=== PATIENT | male | born 1955 ===

== ENCOUNTER 2017-06-11 11:48 | Inpatient (IN) | payer BC, MEDICARE, OTHER ==
--- NOTE | 2017-06-11 12:25 | ED PDOC ---
HPI: Chest Pain Time Seen by Provider: 06/11/17 12:03 Chief Complaint (Nursing): Chest Pain Chief Complaint (Provider): Chest tightness History Per: Patient History/Exam Limitations: no limitations Onset/Duration Of Symptoms: Days (x2) Current Symptoms Are (Timing): Still Present Additional Complaint(s): Rylan Warner is a 61 year old male with a past medical history of CAD s/p cabg presenting to the ED for an evaluation of left sided chest tightness radiating to his left arm occurring for 2 days prior to arrival. The patient denies shortness of breath, cough, or fever. PMD: Demetrius Goyal MD Past Medical History Reviewed: Historical Data, Nursing Documentation, Vital Signs Vital Signs: Last Vital Signs Temp 98 F 06/11/17 12:49 Pulse 70 06/11/17 12:49 Resp 18 06/11/17 12:49 BP 130/72 06/11/17 12:49 Pulse Ox 100 06/11/17 12:49 - Medical History PMH: CAD - Surgical History Surgical History: CABG - Family History Family History: States: No Known Family Hx - Social History Current smoker - smoking cessation education provided: No Ex-Smoker (has not smoked in the last 12 months): No Alcohol: None Drugs: Denies - Home Medications Home Medications: Ambulatory Orders Medication Instructions Recorded Aspirin [Ecotrin] 81 mg PO DAILY 06/11/17 Clopidogrel [Plavix] 75 mg PO DAILY 06/11/17 Ergocalciferol (Vitamin D2) 50,000 unit PO SUN 06/11/17 [Vitamin D2] Metoprolol Tartrate [Lopressor] 25 mg PO Q12H 06/11/17 Multivitamin [Daily Zoraida] 1 tab PO DAILY 06/11/17 [id number] Ethyl Esters 1 GM 2 gm PO BID 06/11/17 [Lovaza] - Allergies Allergies/Adverse Reactions: Allergies Allergy/AdvReac Type Severity Reaction Status Date / Time No Known Allergies Allergy Verified 06/11/17 11:55 Review of Systems ROS Statement: Except As Marked, All Systems Reviewed And Found Negative Constitutional: Negative for: Fever Respiratory: Positive for: Other (left sided chest tightness radiating to left arm). Negative for: Cough, Shortness of Breath Musculoskeletal: Positive for: Arm Pain (left) Physical Exam - Reviewed Nursing Documentation Reviewed: Yes Vital Signs Reviewed: Yes - Physical Exam Appears: Positive for: Non-toxic, No Acute Distress Head Exam: Positive for: ATRAUMATIC, NORMOCEPHALIC Skin: Positive for: Normal Color, Warm, Dry Eye Exam: Positive for: Normal appearance, EOMI ENT: Positive for: Normal ENT Inspection Neck: Positive for: Normal, Painless ROM Cardiovascular/Chest: Positive for: Regular Rate, Rhythm, Chest Non Tender (no anterior chest wall tenderness) Respiratory: Positive for: Normal Breath Sounds. Negative for: Respiratory Distress Gastrointestinal/Abdominal: Positive for: Normal Exam, Soft. Negative for: Tenderness Back: Positive for: Normal Inspection Extremity: Positive for: Normal ROM (full ROM). Negative for: Deformity Neurologic/Psych: Positive for: Alert, Oriented (x3). Negative for: Motor/ Sensory Deficits - Laboratory Results Result Diagrams: 06/11/17 12:40 12 12:40 Medical Decision Making Medical Decision Making: Time: 12:03 Impression: Chest tightness Plan: * ED EKG * CMP * Troponin I * CBC (with differential) * Aspirin 325 mg PO * [RAD] Chest Two Views (PA/LAT) * Reevaluation Scribe Attestation: Documented by Marlys Walsh, acting as a scribe for Alec Randall MD. Provider Scribe Attestation: All medical record entries made by the Scribe were at my direction and personally dictated by me. I have reviewed the chart and agree that the record accurately reflects my personal performance of the history, physical exam, medical decision making, and the department course for this patient. I have also personally directed, reviewed, and agree with the discharge instructions and disposition. Disposition - Clinical Impression Clinical Impression: Chest pain - Patient ED Disposition Is Patient to be Admitted: Yes - Disposition Disposition Time: 14:31 Condition: FAIR Forms: [employer] (Bulgarian) - Pt Status Changed To: Hospital Disposition Of: Observation - POA Present On Arrival: None
[2017-06-11 13:01] LABS: BASO % 0.5 % (0.0-2.0); EOS # 0.1 K/uL (0.0-0.7); EOS % 0.8 % (0.0-4.0); HEMATOCRIT 42.5 % (35.0-51.0); LYMPH # 1.1 K/uL (1.0-4.3); LYMPH % 14.6 % (20.0-40.0); MEAN CELL VOLUME 87.5 fl (80.0-94.0); MEAN CORPUSCULAR HEMOGLOBIN 30.1 pg (27.0-31.0); MEAN CORPUSCULAR HGB CONC 34.4 g/dL (33.0-37.0); MEAN PLATELET VOLUME 9.4 fl (7.2-11.7); MONO # 0.4 K/uL (0.0-0.8); MONO % 5.7 % (0.0-10.0); NEUT # 5.8 K/uL (1.8-7.0); NEUT % 78.4 % (50.0-75.0); NRBC % 0.1 % (0.0-0.0); WHITE BLOOD COUNT 7.4 K/uL (4.8-10.8)
[2017-06-11 13:09] LABS: ALB/GLOB RATIO 1.7 (1.0-2.1); ALKALINE PHOSPHATASE 72 U/L (38-126); ALT/SGPT 57 U/L (21-72); AST/SGOT 26 U/L (17-59); BILIRUBIN,TOTAL 0.7 mg/dl (0.2-1.3); BLOOD UREA NITROGEN 10 mg/dl (9-20); CALCIUM 9.4 mg/dL (8.4-10.2); CARBON DIOXIDE 26 mmol/L (22-30); CHLORIDE 103 mmol/L (98-107); GFR AFRICAN-AMERICAN > 60; GLUCOSE,RANDOM 98 mg/dL (75-110); POTASSIUM 4.1 MMOL/L (3.6-5.0); SODIUM 140 mmol/l (132-148); TOTAL PROTEIN 7.7 G/DL (6.3-8.2)
--- NOTE | 2017-06-11 15:47 | RAD ---
HISTORY: Chest pain. COMPARISON: Comparison chest 11/05/2013 TECHNIQUE: Chest PA and lateral FINDINGS: LUNGS: No acute consolidation. There is a vague nodular appearing density left lower lateral lung field which overlies the left posterior 9th rib and left anterior 6 rib junction of uncertain etiology though could represent confluence of shadow artifact. Followup nonemergent CT scan of the chest recommended for further evaluation to exclude parenchymal nodule. PLEURA: No significant pleural effusion identified. No pneumothorax apparent. CARDIOVASCULAR: Sternotomy wires and CABG clips again noted. Heart size within range of normal. Minor calcification aortic knob. OSSEOUS STRUCTURES: No significant abnormalities. VISUALIZED UPPER ABDOMEN: Normal. OTHER FINDINGS: None. IMPRESSION: No acute consolidation. Vague nodular density left lateral lower lung field overlying the left posterior 9th rib and left anterior 6 rib junction of uncertain etiology. While this could represent confluence of shadow artifact, the possibility of a small parenchymal nodule not excluded. Followup nonemergent CT scan of the chest recommended for further evaluation. Note that this report was placed in PA review folder for followup.
[2017-06-11] MEDS: Omega-3-Acid Ethyl Esters 1 GM Cap PO SCH (17:42)
[2017-06-11] MEDS: Enoxaparin 40 mg Syringe SC SCH (17:43)
--- NOTE | 2017-06-11 17:49 | CP.PCM.CON ---
History of Present Illness - History of Present Illness History of Present Illness: I was asked to see patient by Dr Carmen. Patient is a 61 year old male with PMH HTN, hypercholesterolemia CAD s/p CABG who presents with chest pain. The patient describes substernal chest pain which is worse with inspiration. He has pressure on the left and has associated dyspnea. He previously had a stress test which was thought to be due to diaphragmatic attenuation. He has done well until his most recent onset of symptoms. Review of Systems - Constitutional Constitutional: absent: As Per HPI, Anorexia, Chills, Daytime Sleepiness, Excessive Sweating, Fatigue, Fever, Frequent Falls, Headache, Increased Appetite , Lethargy, Malaise, Night Sweats, Snoring, Sleep Apnea, Weight Gain, Weight Loss, Weakness, Other - EENT Eyes: absent: As Per HPI, Blind Spots, Blurred Vision, Change in Vision, Decreased Night Vision, Diplopia, Discharge, Dry Eye, Exophthalmos, Floaters, Irritation, Itchy Eyes, Loss of Peripheral Vision, Pain, Photophobia, Requires Corrective Lenses, Sees Flashes, Spots in Vision, Tunnel Vision, Other Visual Disturbances, Loss of Vision, Other Ears: absent: As Per HPI, Decreased Hearing, Ear Discharge, Ear Pain, Tinnitus, Abnormal Hearing, Disequilibrium, Dizziness, Other Nose/Mouth/Throat: absent: As Per HPI, Epistaxis, Nasal Congestion, Nasal Discharge, Nasal Obstruction, Nasal Trauma, Nose Pain, Post Nasal Drip, Sinus Pain, Sinus Pressure, Bleeding Gums, Change in Voice, Dental Pain, Dry Mouth, Dysphagia, Halitosis, Hoarsness, Lip Swelling, Mouth Lesions, Mouth Pain, Odynophagia, Sore Throat, Throat Swelling, Tongue Swelling, Facial Pain, Neck Pain, Neck Mass, Other - Cardiovascular Cardiovascular: Chest Pain - Respiratory Respiratory: absent: As Per HPI, Cough, Dyspnea, Hemoptysis, Dyspnea on Exertion , Wheezing, Snoring, Stridor, Pain on Inspiration, Chest Congestion, Excessive Mucous Production, Change in Mucous Color, Pain with Coughing, Other - Gastrointestinal Gastrointestinal: absent: As Per HPI, Abdominal Pain, Belching, Bloating, Change in Bowel Habits, Change in Stool Character, Coffee Ground Emesis, Constipation, Cramping, Diarrhea, Dyspepsia, Dysphagia, Early Satiety, Excessive Flatus, Fecal Incontinence, Heartburn, Hematemesis, Hematochezia, Loose Stools, Melena, Nausea, Odynophagia, Temesmus, Vomiting, Other - Genitourinary Genitourinary: absent: As Per HPI, Change in Urinary Stream, Difficulty Urinating, Dysuria, Flank Pain, Hematuria, Pyuria, Nocturia, Urinary Incontinence, Urinary Frequency, Urinary Hesitance, Urinary Urgency, Voiding Freq/Small Amts, Freq UTI, Hx Renal/Bladder Calculi, Hx /Renal Surgery, Bladder Distension, Other - Musculoskeletal Musculoskeletal: absent: As Per HPI, Abnormal Gait, Arthralgias, Atrophy, Back Pain, Deformity, Joint Swelling, Limited Range of Motion, Loss of Height, Muscle Cramps, Muscle Weakness, Myalgias, Neck Pain, Numbness, Radiating Pain into Limb, Stiffness, Tingling, Other - Integumentary Integumentary: absent: As Per HPI, Acne, Alopecia, Bleeding Lesions, Change in Hair, Change in Nails, Change in Pigmentation, Changing Lesions, Dry Skin, Erythema, Furuncle, Hirsutism, Lesions, New Lesions, Non-Healing Lesions, Photosensitivity, Pruritus, Rash, Skin Pain, Skin Ulcer, Sores, Striae, Swelling , Unusual Bruising, Wounds, Jaundice, Other - Neurological Neurological: absent: As Per HPI, Abnormal Gait, Abnormal Hearing, Abnormal Movements, Abnormal Speech, Behavioral Changes, Burning Sensations, Confusion, Convulsions, Disequilibrium, Dizziness, Numbness, Focal Weakness, Frequent Falls , Headaches, Lack of Coordination, Loss of Vision, Memory Loss, Paresthesias, Radicular Pain, Restless Legs, Sensory Deficit, Syncope, Tingling, Tremor, Vertigo, Weakness, Other Visual Disturbances, Other - Psychiatric Psychiatric: absent: As Per HPI, Abnormal Sleep Pattern, Anhedonia, Anxiety, Auditory Hallucinations, Behavioral Changes, Change in Appetite, Change in Libido, Confusion, Depression, Difficulty Concentrating, Hallucinations, Homicidal Ideation, Hopelessness, Irritability, Memory Loss, Mood Swings, Panic Attacks, Paranoia, Suicidal Ideation, Visual Hallucinations, Tactile Hallucinations, Other - Endocrine Endocrine: absent: As Per HPI, Change in Body Appearance, Change in Libido, Cold Intolorance, Deepening of Voice, Excessive Sweating, Fatigue, Flushing, Heat Intolorance, Increase in Ring/Shoe/Hat Size, Palpitations, Polydipsia, Polyphagia, Polyuria, Other - Hematologic/Lymphatic Hematologic: absent: As Per HPI, Easy Bleeding, Easy Bruising, Lymphadenopathy, Other Past Patient History - Past Social History Alcohol: None Drugs: Denies - CARDIAC Hx Cardiac Disorders: Yes Hx Heart Attack: Yes Other/Comment: open heart surgery - PSYCHIATRIC Hx Substance Use: No - SURGICAL HISTORY Hx Coronary Artery Bypass Graft: Yes Meds Allergies/Adverse Reactions: Allergies Allergy/AdvReac Type Severity Reaction Status Date / Time No Known Allergies Allergy Verified 06/11/17 11:55 - Medications Medications: Current Medications Aspirin (Ecotrin) 81 mg PO DAILY [facility] Clopidogrel Bisulfate (Plavix) 75 mg PO DAILY [facility] Enoxaparin Sodium (Lovenox) 40 mg SC DAILY [facility] PRN Reason: Protocol Last Admin: 06/11/17 17:43 Dose: 40 mg Ergocalciferol (Drisdol 50,000 Intl Units Cap) 1 cap PO SUN [facility] Metoprolol Tartrate (Lopressor) 25 mg PO Q12H [facility] Ethyl Esters (Lovaza) 2 gm PO BID [facility] Last Admin: 06/11/17 17:42 Dose: 2 gm Physical Exam - Constitutional Appears: Non-toxic - Head Exam Head Exam: NORMAL INSPECTION - Eye Exam Eye Exam: Normal appearance - ENT Exam ENT Exam: Mucous Membranes Moist - Neck Exam Neck exam: Positive for: Full Rom - Respiratory Exam Respiratory Exam: NORMAL BREATHING PATTERN - Cardiovascular Exam Cardiovascular Exam: REGULAR RHYTHM - GI/Abdominal Exam GI & Abdominal Exam: Normal Bowel Sounds - Rectal Exam Rectal Exam: Deferred - Extremities Exam Extremities exam: Positive for: full ROM. Negative for: pedal edema - Back Exam Back exam: NORMAL INSPECTION - Neurological Exam Neurological exam: Alert, Oriented x3 - Psychiatric Exam Psychiatric exam: Normal Affect - Skin Skin Exam: Normal Color Results - Vital Signs Recent Vital Signs: Last Vital Signs Temp 98.8 F 06/11/17 17:15 Pulse 76 06/11/17 17:15 Resp 18 06/11/17 17:15 BP 138/69 06/11/17 17:15 Pulse Ox 97 06/11/17 17:15 - Labs Result Diagrams: 06/11/17 12:40 06/11/17 12:40 Labs: Laboratory Results - last 24 hr 06/11/17 06/11/17 12:40 12:40 WBC 7.4 RBC 4.86 Hgb 14.6 Hct 42.5 MCV 87.5 MCH 30.1 MCHC 34.4 RDW 13.0 Plt Count 165 MPV 9.4 Neut % (Auto) 78.4 H Lymph % (Auto) 14.6 L [place] % (Auto) 5.7 Eos % (Auto) 0.8 Baso % (Auto) 0.5 Neut # 5.8 Lymph # 1.1 [place] # 0.4 Eos # 0.1 Baso # 0.0 Sodium 140 Potassium 4.1 Chloride 103 Carbon Dioxide 26 Anion Gap 15 BUN 10 Creatinine 0.8 Est GFR ( Amer) > 60 Est GFR (Non-Af Amer) > 60 Random Glucose 98 Calcium 9.4 Total Bilirubin 0.7 AST 26 ALT 57 Alkaline Phosphatase 72 Troponin I < 0.0120 Total Protein 7.7 Albumin 4.9 Globulin 2.8 Albumin/Globulin Ratio 1.7 - EKG Data EKG Interpreted by: Myself EKG shows normal: Sinus rhythm Assessment & Plan (1) Chest pain Assessment and Plan: patient has a history of CAD and previous CABG. He will require evaluation for myocardial ischemia. recommend nuclear stress test. Status: Acute (2) HTN (hypertension) Assessment and Plan: blood pressure control Status: Acute (3) Hypercholesterolemia Assessment and Plan: statin therapy Status: Acute
[2017-06-12 05:44] LABS: CHOLESTEROL 136 mg/dL (0-199)
[2017-06-12 07:29] LABS: THYROID STIMULATING HORMONE 2.77 mIU/ML (0.46-4.68)
--- NOTE | 2017-06-12 08:58 | CP.PCM.HP ---
History of Present Illness - History of Present Illness History of Present Illness: 61 yo ,m, PMHx/o HTN, HLD, CAD s/p CABG 3 years ago presented to Ed with complaints of left precordial chest pain subcostal started 3 days noticed in the morning, constant, not radiated, 7/10 intensity, worse during inspiration and when moving left arm, alleviated spontaneously w/o medications. Patient denies fever, recent cold, SOB on exertion, cough,nausea,vomiting, diaphoresis, abd pain, diarrhea. PMD: Demetrius Goyal MD PMhx: HTN, HLD, CAD s/p CABG 3 years ago Allergies: NKDa Meds: Lipitor 80 daily, aspirin PSurgHx: CABF 3 years ago, cholecystectomy, left shoulder PFhx: Father CABF, CAD Mother DM PShx: No ETOH, rect drugs, cig, not working now ED course: Vital signs stable EKG normal,troponin neg x 3, CXR no acute consolidation Present on Admission - Present on Admission Any Indicators Present on Admission: No History of DVT/PE: No History of Uncontrolled Diabetes: No Urinary Catheter: No Review of Systems - Cardiovascular Cardiovascular: Chest Pain - Respiratory Respiratory: absent: Dyspnea, Wheezing Past Patient History - Past Medical History & Family History Past Medical History?: Yes - Past Social History Smoking Status: Never Smoked - CARDIAC Hx Cardiac Disorders: Yes Hx Heart Attack: Yes - PULMONARY Hx Respiratory Disorders: No - NEUROLOGICAL Hx Neurological Disorder: No - HEENT Hx HEENT Problems: No - RENAL Hx Chronic Kidney Disease: No - ENDOCRINE/METABOLIC Hx Endocrine Disorders: No - HEMATOLOGICAL/ONCOLOGICAL Hx Blood Disorders: No Hx Blood Transfusions: No - INTEGUMENTARY Hx Dermatological Problems: No - MUSCULOSKELETAL/RHEUMATOLOGICAL Hx Musculoskeletal Disorders: No Hx Falls: No - GASTROINTESTINAL Hx Gastrointestinal Disorders: No - GENITOURINARY/GYNECOLOGICAL Hx Genitourinary Disorders: No - PSYCHIATRIC Hx Psychophysiologic Disorder: No Hx Substance Use: No - SURGICAL HISTORY Hx Surgeries: Yes Hx Coronary Artery Bypass Graft: Yes - ANESTHESIA Hx Anesthesia: Yes Hx Anesthesia Reactions: No Hx Malignant Hyperthermia: No Has any member of the family had a problem w/ anesthesia?: No Meds Allergies/Adverse Reactions: Allergies Allergy/AdvReac Type Severity Reaction Status Date / Time No Known Allergies Allergy Verified 06/11/17 11:55 Physical Exam - Constitutional Appears: Well, No Acute Distress - Head Exam Head Exam: ATRAUMATIC, NORMOCEPHALIC - Eye Exam Eye Exam: Normal appearance - ENT Exam ENT Exam: Mucous Membranes Moist - Neck Exam Neck exam: Positive for: Normal Inspection - Respiratory Exam Respiratory Exam: Clear to Auscultation Bilateral. absent: Rales, Rhonchi, Wheezes - Cardiovascular Exam Cardiovascular Exam: REGULAR RHYTHM, +S1, +S2 Additional comments: reproducible chest pain - GI/Abdominal Exam GI & Abdominal Exam: Normal Bowel Sounds, Soft. absent: Guarding - Extremities Exam Extremities exam: Positive for: normal inspection. Negative for: calf tenderness, joint swelling - Neurological Exam Neurological exam: Alert, Oriented x3 - Psychiatric Exam Psychiatric exam: Normal Affect - Skin Skin Exam: Intact Results - Vital Signs Recent Vital Signs: Last Vital Signs Temp 98.1 F 06/12/17 07:55 Pulse 71 06/12/17 07:55 Resp 18 06/12/17 07:55 BP 130/70 06/12/17 07:55 Pulse Ox 97 06/12/17 07:55 - Labs Result Diagrams: 06/11/17 12:40 06/11/17 12:40 Labs: Laboratory Results - last 24 hr 06/11/17 06/11/17 06/11/17 12:40 12:40 20:54 WBC 7.4 RBC 4.86 Hgb 14.6 Hct 42.5 MCV 87.5 MCH 30.1 MCHC 34.4 RDW 13.0 Plt Count 165 MPV 9.4 Neut % (Auto) 78.4 H Lymph % (Auto) 14.6 L [place] % (Auto) 5.7 Eos % (Auto) 0.8 Baso % (Auto) 0.5 Neut # 5.8 Lymph # 1.1 [place] # 0.4 Eos # 0.1 Baso # 0.0 Sodium 140 Potassium 4.1 Chloride 103 Carbon Dioxide 26 Anion Gap 15 BUN 10 Creatinine 0.8 Est GFR ( Amer) > 60 Est GFR (Non-Af Amer) > 60 Random Glucose 98 Calcium 9.4 Total Bilirubin 0.7 AST 26 ALT 57 Alkaline Phosphatase 72 Troponin I < 0.0120 < 0.0120 Total Protein 7.7 Albumin 4.9 Globulin 2.8 Albumin/Globulin Ratio 1.7 Triglycerides Cholesterol LDL Cholesterol Direct HDL Cholesterol Vitamin B12 TSH 3rd Generation 06/12/17 06/12/1717 04:45 04:45 06:44 WBC RBC Hgb Hct MCV MCH MCHC RDW Plt Count MPV Neut % (Auto) Lymph % (Auto) [place] % (Auto) Eos % (Auto) Baso % (Auto) Neut # Lymph # [place] # Eos # Baso # Sodium Potassium Chloride Carbon Dioxide Anion Gap BUN Creatinine Est GFR ( Amer) Est GFR (Non-Af Amer) Random Glucose Calcium Total Bilirubin AST ALT Alkaline Phosphatase Troponin I < 0.0120 Total Protein Albumin Globulin Albumin/Globulin Ratio Triglycerides 110 Cholesterol 136 LDL Cholesterol Direct 84 HDL Cholesterol 36 Vitamin B12 463 TSH 3rd Generation 2.77 Assessment & Plan - Assessment and Plan (Free Text) Plan: Patient is a 61 year old male with PMH HTN, hypercholesterolemia CAD s/p CABG who is admitted for chest pain. 1)chest pain -most likely MSK origin. to r/o ACS -jammer hooker consult appreciated: nuclear stress test -f/u result 2) CAD -S/p CABG 3 years ago 3) Hyperlipidemia taking lipitor 4) HTN -controlled metoprolol 5) DVT prophylaxis -Lovenox
[2017-06-12] MEDS: Omega-3-Acid Ethyl Esters 1 GM Cap PO SCH ×2 (09:08→16:30)
[2017-06-12] MEDS: Enoxaparin 40 mg Syringe SC SCH (09:09)
[2017-06-13 05:26] LABS: HEMATOCRIT 42.8 % (35.0-51.0); MEAN CELL VOLUME 89.1 fl (80.0-94.0); MEAN CORPUSCULAR HEMOGLOBIN 29.4 pg (27.0-31.0); WHITE BLOOD COUNT 6.7 K/uL (4.8-10.8)
[2017-06-13 06:00] LABS: ALB/GLOB RATIO 1.6 (1.0-2.1); ALKALINE PHOSPHATASE 61 U/L (38-126); ALT/SGPT 51 U/L (21-72); AST/SGOT 27 U/L (17-59); BILIRUBIN,TOTAL 0.6 mg/dl (0.2-1.3); BLOOD UREA NITROGEN 17 mg/dl (9-20); CALCIUM 9.2 mg/dL (8.4-10.2); CARBON DIOXIDE 29 mmol/L (22-30); CHLORIDE 102 mmol/L (98-107); GFR AFRICAN-AMERICAN > 60; GLUCOSE,RANDOM 90 mg/dL (75-110); SODIUM 141 mmol/l (132-148)
[2017-06-13] MEDS: Omega-3-Acid Ethyl Esters 1 GM Cap PO SCH (09:29)
[2017-06-13] MEDS: Enoxaparin 40 mg Syringe SC SCH (09:29)
--- NOTE | 2017-06-13 10:05 | CP.PCM.DIS ---
Provider - Provider Date of Admission: 06/12/17 16:41 Attending physician: Pancho Blue MD Time Spent in preparation of Discharge (in minutes): 30 Hospital Course - Lab Results Lab Results: Most Recent Lab Values WBC 6.7 K/uL (4.8-10.8) 06/13/17 04:30 RBC 4.80 Mil/uL (4.40-5.90) 06/13/17 04:30 Hgb 14.1 g/dL (12.0-18.0) 06/13/17 04:30 Hct 42.8 % (35.0-51.0) 06/13/17 04:30 MCV 89.1 fl (80.0-94.0) 06/13/17 04:30 MCH 29.4 pg (27.0-31.0) 06/13/17 04:30 MCHC 33.0 g/dL (33.0-37.0) 06/13/17 04:30 RDW 13.0 % (11.5-14.5) 06/13/17 04:30 Plt Count 153 K/uL (130-400) 06/13/17 04:30 MPV 9.4 fl (7.2-11.7) 06/11/17 12:40 Neut % (Auto) 78.4 % (50.0-75.0) H 06/11/17 12:40 Lymph % (Auto) 14.6 % (20.0-40.0) L 06/11/17 12:40 [place] % (Auto) 5.7 % (0.0-10.0) 06/11/17 12:40 Eos % (Auto) 0.8 % (0.0-4.0) 06/11/17 12:40 Baso % (Auto) 0.5 % (0.0-2.0) 06/11/17 12:40 Neut # 5.8 K/uL (1.8-7.0) 06/11/17 12:40 Lymph # 1.1 K/uL (1.0-4.3) 06/11/17 12:40 [place] # 0.4 K/uL (0.0-0.8) 06/11/17 12:40 Eos # 0.1 K/uL (0.0-0.7) 06/11/17 12:40 Baso # 0.0 K/uL (0.0-0.2) 06/11/17 12:40 Sodium 141 mmol/l (132-148) 06/13/17 04:30 Potassium 4.0 MMOL/L (3.6-5.0) 06/13/17 04:30 Chloride 102 mmol/L (98-107) 06/13/17 04:30 Carbon Dioxide 29 mmol/L (22-30) 06/13/17 04:30 Anion Gap 14 (10-20) 06/13/17 04:30 BUN 17 mg/dl (9-20) 06/13/17 04:30 Creatinine 0.8 mg/dl (0.8-1.5) 06/13/17 04:30 Est GFR ( Amer) > 60 06/13/17 04:30 Est GFR (Non-Af Amer) > 60 06/13/17 04:30 Random Glucose 90 mg/dL (75-110) 06/13/17 04:30 Calcium 9.2 mg/dL (8.4-10.2) 06/13/17 04:30 Total Bilirubin 0.6 mg/dl (0.2-1.3) 06/13/17 04:30 AST 27 U/L (17-59) 06/13/17 04:30 ALT 51 U/L (21-72) 06/13/17 04:30 Alkaline Phosphatase 61 U/L (38-126) 06/13/17 04:30 Troponin I < 0.0120 ng/mL (0.00-0.120) 06/12/17 04:45 Total Protein 7.0 G/DL (6.3-8.2) 06/13/17 04:30 Albumin 4.3 g/dL (3.5-5.0) 06/13/17 04:30 Globulin 2.7 gm/dL (2.2-3.9) 06/13/17 04:30 Albumin/Globulin Ratio 1.6 (1.0-2.1) 06/13/17 04:30 Triglycerides 110 mg/DL (0-149) 06/12/17 04:45 Cholesterol 136 mg/dL (0-199) 06/12/17 04:45 LDL Cholesterol Direct 84 mg/dL (0-129) 06/12/17 04:45 HDL Cholesterol 36 MG/DL (30-70) 06/12/17 04:45 Vitamin B12 463 pg/mL (239-931) 06/12/17 06:44 TSH 3rd Generation 2.77 mIU/ML (0.46-4.68) 06/12/17 06:44 - Hospital Course Hospital Course: 61 yo ,m, PMHx/o HTN, HLD, CAD s/p CABG 3 years ago presented to Ed with complaints of left precordial chest pain subcostal started 3 days noticed in the morning, constant, not radiated, 7/10 intensity, worse during inspiration and when moving left arm, alleviated spontaneously w/o medications. Patient denies fever, recent cold, SOB on exertion, cough,nausea,vomiting, diaphoresis, abd pain, diarrhea. During hospitalizations chest pain subsided, ACS ruled out, troponin neg, ekg normal. Family Services Manager evaluation appreciated. patient asymptomatic, cleared for discharge. f/u PMd 1 week. Diagnosis 1)chest pain -resolved -most likely MSK origin. to r/o ACS -grey washer consult appreciated: nuclear stress test negative -f/u result 2) CAD -S/p CABG 3 years ago 3) Hyperlipidemia taking lipitor 4) HTN -controlled metoprolol 5) DVT prophylaxis -Lovenox Discharge Exam - Head Exam Head Exam: ATRAUMATIC, NORMOCEPHALIC - Eye Exam Eye Exam: Normal appearance - Respiratory Exam Respiratory Exam: NORMAL BREATHING PATTERN. absent: Rales, Rhonchi - Cardiovascular Exam Cardiovascular Exam: REGULAR RHYTHM, +S1, +S2 - GI/Abdominal Exam GI & Abdominal Exam: Normal Bowel Sounds, Soft. absent: Guarding, Tenderness - Extremities Exam Extremities exam: normal inspection - Neurological Exam Neurological exam: Alert, Oriented x3 - Psychiatric Exam Psychiatric exam: Normal Mood - Skin Skin Exam: Intact Discharge Plan - Follow Up Plan Condition: FAIR Disposition: HOME/ ROUTINE
--- NOTE | 2017-06-13 11:54 | CARD ---
APPROVED REPORT EKG Measurement Heart [id number] <Conclusion> Normal sinus rhythm Normal ECG
--- NOTE | 2017-06-13 11:56 | CARD ---
APPROVED REPORT Protocol: JOMAR Test Type: Stress Nuclear Medications: ASA 81mg, Clopidogrea 75mg, Enoxaparin 40mg, Ergocalciferol 50,000, Metoprolol 25mg, [place] 3 2gm Medical History: [place], CABG, CHOLESTEROL, Target HR: 161 bpm Resting ECG: normal Resting Heart Rate: 73 bpm Resting Blood Pressure: 110/60mmHg submaximum (85%): 137 bpm TEST SUMMARY [id number]/60.5. [id number]/60.5. PRETESTHYPERV.00:[id number]/60.5. PRETESTWARM-UP00:[id number]/60.5. EXERCISESTAGE 103:001.710.04.252627/62.0. EXERCISESTAGE 203:[id number]/70.0. EXERCISESTAGE 303:[id number]/70.0. EXERCISESTAGE 401:[id number]/70.0. MPSKRENW67:580.00.01.919821/60.0. POST EXERCISE Reason for Termination: Target heart rate achieved Target HR: No Max HR: 136 bpm 85% of Maximum Predicted HR: 161 bpm Exercise duration: 10:13 min:sec, 4 Stage Exercise capacity: 12.1METs Max Blood Pressure: 178/70mmHg Blood Pressure response to exercise: normal resting BP - appropriate response Heart Rate response to exercise: appropriate Chest Pain: No, none Angina index: 0 Arrhythmia: No, none ST Change: No, none Deviation: 0 mm Stress EKG Interpretation 61 y/o male being evaluated for chest pain s/p CABG 3 yrs ago Resting EKG: normal; HR: 75 BPM; BP: 110/60 He exercised with Jomar Protocol for 10:13 minutes attaining a HR of 137 BPM which is 85% of MPHR BP: 178/70 with a workload of 12.10 METs. There was no ST changes or chest pain. At peak exertion he was injected with 30mCi Myoview and stress imaging was taken 45 minutes later. EXAM: Myocardial Perfusion REST/STRESS Image QualityGood Imaging Protocol The imaging protocol used to acquire images was Rest Tc-99m/stress Tc-99m 1 day Rest Spect myocardial perfusion imaging was performed in supine position 70 minutes following the injection of 10 mCi of Tc-99 Myoview. Time of rest injection: 8:13 Time of rest imagin:30 At peak stress, the patient was injected intravenously with 30mCi of Tc-99 tetrofosmin after an infusion time of minutes and seconds. Time of stress injection: 11;28 Time of stress imagin:00 Gated Stress Spect was performed 150 minutes after intravenous Tc-99 Myoview injection. The images were gated to evaluate regional wall motion and calculate ventricular ejection fraction. LV Perfusion There is good uptake in all yoo of the LV on Stress as well as Resting imaging Wall Motion Good contractility of all yoo of the LV with an EF: 60 - 65% CONCLUSION 1. Normal Stress Myoview
[2017-06-13 13:10] VITALS: BP 108/63; PULSE 69; RESP 18; TEMP 98.4; O2SAT 98
[2017-06-17] MEDS ORDERED: Ergocalciferol 50,000 Intl Units Cap PO SCH (09:00)
== END 2017-06-13 17:15 | disposition home or self-care (01) | DRG 313 ==
LOC: H.ER 11:48 → H.ERHOLD 14:30 → H.TEL 16:48 → OBSVTOIN 06-12 16:41
PROVIDERS: ADMIT Internal Medicine; ATTEND Internal Medicine
DX: R07.89 Other chest pain (principal); I25.10 Atherosclerotic heart disease of native coronary artery without angina pectoris; E78.00 Pure hypercholesterolemia, unspecified; I25.2 Old myocardial infarction; Z95.1 Presence of aortocoronary bypass graft; E78.5 Hyperlipidemia, unspecified; I10 Essential (primary) hypertension